=== PATIENT | female | born 1965 | race Caucasian/White ===

== ENCOUNTER 2024-10-15 16:11 | Emergency (ER) | payer OTHER ==
[2024-10-15 16:17] VITALS: RESP 18; TEMP 97.9
--- NOTE | 2024-10-15 17:40 | ED ---
Back Pain HPI - General Chief Complaint: Back Pain/Injury Stated Complaint: back injury -[facility] Time Seen by Provider: 10/15/24 16:30 Source: patient, RN notes reviewed Mode of arrival: ambulatory Limitations: no limitations - History of Present Illness Initial Comments: This is a 59-year-old female with no significant medical history presenting on behalf of [facility] for injury at work on Friday morning. 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 Patient denies loss of consciousness but endorses worsening back pain, neck stiffness/soreness and dizziness which started yesterday. Endorses use of Tylenol with minimal relief. Denies AMS, extremity paresthesia/radiculopathy, loss of extremity motor function, saddle paresthesia, urinary incontinence/retention. Denies chest pain, dyspnea, abdominal pain, N/V/D. MD Complaint: back pain, back injury Onset/Timin -: days(s) Place: work Severity scale (1-10): 10 Consistency: constant Improves With: immobilization Worsens With: movement Context: fall, trauma Treatments Prior to Arrival: acetaminophen - Related Data Home Medications Medication Instructions Recorded Confirmed Cholecalciferol [Vitamin D3] 5,000 unit PO DAILY@1200 04/11/14 04/13/14 Multivitamins, Thera [Multivitamin] 1 each PO DAILY 04/11/14 04/13/14 Phentermine HCl [Adipex-P] 37.5 mg PO QAM 04/11/14 04/13/14 Previous Rx's Medication Instructions Recorded Cyclobenzaprine [Flexeril] 10 mg PO Q8H PRN #15 tab 10/15/24 Ibuprofen [Motrin] 800 mg PO Q8HR PRN #30 tab 10/15/24 Allergies Allergy/AdvReac Type Severity Reaction Status Date / Time No Known Allergies Allergy Verified 10/15/24 16:17 Review of Systems ROS Statement: Those systems with pertinent positive or pertinent negative responses have been documented in the HPI. ROS Other: All systems not noted in ROS Statement are negative. Past Medical History Past Medical History: No Reported History History of Any Multi-Drug Resistant Organisms: None Reported Past Surgical History: Section, Cholecystectomy Additional Past Surgical History / Comment(s): cyst removed from tailbone Past Anesthesia/Blood Transfusion Reactions: Motion Sickness, Postoperative Nausea & Vomiting (PONV) Past Psychological History: No Psychological Hx Reported Past Alcohol Use History: Rare Past Drug Use History: None Reported - Past Family History Father Family Medical History: Diabetes Mellitus Mother Family Medical History: Diabetes Mellitus General Exam General appearance: alert, in no apparent distress Head exam: Present: atraumatic, normocephalic, normal inspection Eye exam: Present: normal appearance, PERRL, EOMI. Absent: scleral icterus, conjunctival injection, periorbital swelling ENT exam: Present: normal exam, mucous membranes moist Neck exam: Present: normal inspection. Absent: tenderness, meningismus, lymphadenopathy Respiratory exam: Present: normal lung sounds bilaterally. Absent: respiratory distress, wheezes, rales, rhonchi, stridor, accessory muscle use, decreased breath sounds, prolonged expiratory Cardiovascular Exam: Present: regular rate, normal rhythm, normal heart sounds. Absent: systolic murmur, diastolic murmur, rubs, gallop, clicks GI/Abdominal exam: Present: soft, normal bowel sounds. Absent: distended, tenderness, guarding, rebound, rigid Extremities exam: Present: normal inspection, full ROM, normal capillary refill. Absent: tenderness, pedal edema, joint swelling, calf tenderness Back exam: Present: vertebral tenderness (Positive diffuse vertebral tenderness without obvious crepitus or step-off.) Neurological exam: Present: alert, oriented X3, CN II-XII intact Psychiatric exam: Present: normal affect, normal mood Skin exam: Present: warm, dry, intact, normal color. Absent: rash Course Vital Signs 10/15/24 10/15/24 16:13 19:38 Temperature 97.9 F Pulse Rate 78 92 Respiratory 18 18 Rate Blood Pressure 160/91 153/90 O2 Sat by Pulse 99 99 Oximetry Medical Decision Making - Medical Decision Making Was pt. sent in by a medical professional or institution (RASHID Lorenz, CORRUGATED BOX MACHINE OPERATOR, urgent care, hospital, or fci...) When possible be specific @ -[facility] Did you speak to anyone other than the patient for history (EMS, parent, family, police, friend...)? What history was obtained from this source @ -No Did you review nursing and triage notes (agree or disagree)? Why? @ -I reviewed and agree with nursing and triage notes Were old charts reviewed (outside hosp., previous admission, EMS record, old EKG, old radiological studies, urgent care reports/EKG's, fci records)? Report findings @ -No old charts were reviewed Differential Diagnosis (chest pain, altered mental status, abdominal pain women, abdominal pain men, vaginal bleeding, weakness, fever, dyspnea, syncope, headache, dizziness, GI bleed, back pain, seizure, CVA, palpatations, mental health, musculoskeletal)? @ -Differential Musculoskeletal Muscular strain, contusion, ligament sprain, fracture, arthritis, septic arthritis, bursitis, cellulitis, muscle spasm, nerve compression, DVT, arterial occlusion, herpes zoster, electrolyte abnormality, tumor.... This is not meant to be in all inclusive list EKG interpreted by me (3pts min.). @ -Not done X-rays interpreted by me (1pt min.). @ -None done CT interpreted by me (1pt min.). @ - Head/cervical spine CT shows no acute intracranial process. Degenerative disc changes with endplate spurring and moderate anterior thecal sac compression at C5/C6 and C6/C7. For aminal stenosis from vertebral joint hypertrophy at C5/C6 with no acute fracture seen. Thoracic/lumbar CT shows multilevel endplate spurring throughout the thoracic spine and multilevel disc bulging with thecal sac compression of lumbar spine. Disc bulging and facet hypertrophy and ligamentum flavum laxity at L4/L5 causing spinal canal stenosis. Otherwise no acute fracture. U/S interpreted by me (1pt. min.). @ -None done What testing was considered but not performed or refused? (CT, X-rays, U/S, labs)? Why? @ -None What meds were considered but not given or refused? Why? @ -None Did you discuss the management of the patient with other professionals (professionals i.e. Dr., PA, CORRUGATED BOX MACHINE OPERATOR, lab, RT, psych nurse, sexual assault social worker, rubber heel and sole press tender, teacher, credit risk officer, geriatric case manager)? Give summary @ -No Was smoking cessation discussed for >3mins.? @ -No Was critical care preformed (if so, how long)? @ -No Were there social determinants of health that impacted care today? How? (Homelessness, low income, unemployed, alcoholism, drug addiction, transportation, low edu. Level, literacy, decrease access to med. care, detention, rehab)? @ -No Was there de-escalation of care discussed even if they declined (Discuss DNR or withdrawal of care, Hospice)? DNR status @ -No What co-morbidities impacted this encounter? (DM, HTN, Smoking, COPD, CAD, Cancer, CVA, ARF, Chemo, Hep., AIDS, mental health diagnosis, sleep apnea, morbid obesity)? @ -None Was patient admitted / discharged? Hospital course, mention meds given and route, prescriptions, significant lab abnormalities, going to OR and other pertinent info. @ -Patient initially provided IV morphine, Toradol, p.o. Tylenol and lidocaine patch for pain. Head/cervical spine CT shows no acute intracranial process. Degenerative disc changes with endplate spurring and moderate anterior thecal sac compression at C5/C6 and C6/C7. For aminal stenosis from vertebral joint hypertrophy at C5/C6 with no acute fracture seen. Thoracic/lumbar CT shows multilevel endplate spurring throughout the thoracic spine and multilevel disc bulging with thecal sac compression of lumbar spine. Disc bulging and facet hypertrophy and ligamentum flavum laxity at L4/L5 causing spinal canal stenosis. Otherwise no acute fracture. Motrin 800 and Flexeril sent to patient's pharmacy. Advised purchasing [id number] lidocaine patches for application for 12 hours every 24 hours. Advised follow-up with orthospine for any ongoing spine/back pain. Discussed patient with Dr. Quintero. Undiagnosed new problem with uncertain prognosis? @ -No Drug Therapy requiring intensive monitoring for toxicity (Heparin, Nitro, Insulin, Cardizem)? @ -No Were any procedures done? @ -No Diagnosis/symptom? @ -Disc bulging, DDD, thecal sac compression, mechanical back pain Acute, or Chronic, or Acute on Chronic? @ -Acute Uncomplicated (without systemic symptoms) or Complicated (systemic symptoms)? @ -Uncomplicated Side effects of treatment? @ -No Exacerbation, Progression, or Severe Exacerbation? @ -No Poses a threat to life or bodily function? How? (Chest pain, [place], [place], pneumonia, PE, COPD, DKA, ARF, appy, cholecystitis, CVA, Diverticulitis, Homicidal, Suicidal, threat to staff... and all critical care pts) @ -No Disposition Clinical Impression: Thoracic back pain, Bulging discs Disposition: HOME SELF-CARE Condition: Fair Instructions (If sedation given, give patient instructions): Acute Low Back Pain (ED), Thoracic Pain (ED) Additional Instructions: Warm compresses/heating pad to affected muscle spasms for 10 minutes up to 4 times daily. Gentle massage and stretching also recommended. Alternate Tylenol/Motrin every 4 hours for pain. Follow-up with PCP/orthopedics for any ongoing or worsening pain. Prescriptions: Cyclobenzaprine [Flexeril] 10 mg PO Q8H PRN #15 tab PRN Reason: Spasms Ibuprofen [Motrin] 800 mg PO Q8HR PRN #30 tab PRN Reason: Pain Is patient prescribed a controlled substance at d/c from ED?: No Referrals: None,Stated [Primary Care Provider] - 1-2 days [facility] [Provider Group] - 1-2 days [facility] [Provider Group] - 1-2 days Time of Disposition: 18:54
[2024-10-15] MEDS: KETOROLAC 15 MG/ML 1 ML VIAL IVP STA (17:47)
[2024-10-15] MEDS: MORPHINE SULFATE 4 MG/ML SYRINGE IVP STA (17:50)
[2024-10-15] MEDS: ACETAMINOPHEN TAB 500 MG TAB PO STA (17:54)
[2024-10-15] MEDS: LIDOCAINE 4% PATCH TOPICAL ONE (17:54)
--- NOTE | 2024-10-15 18:34 | CT ---
EXAMINATION TYPE: CT brain radhaine wo con DATE OF EXAM: 10/15/2024 6:20 PM COMPARISON: None. CLINICAL INDICATION: Female, 59 years old with history of Work incident, significant mid back pain/TT P,dizzy, fall, pain TECHNIQUE: CT of the brain is performed utilizing 3 mm thick sections through the posterior fossa and 3 mm thick sections through the remaining calvarium. Study is performed within 24 hours of arrival to the hospital. Contrast used: mL of , (none if empty) CT DLP: 1370.7 mGycm, Automated exposure control for dose reduction was used. FINDINGS: No abnormal hyperdensity is present to suggest an acute intracranial hemorrhage. No mass lesion is evident. Some minimal physiologic basal ganglion calcification is present No acute infarcts are evident. Ventricles and sulci are appropriate for the patient age. Paranasal sinuses and mastoid air cells within the [id number] are clear. IMPRESSIONS: 1. No acute intracranial process. Follow-up MRI can be performed as clinically indicated. CT cervical spine. COMPARISON: None TECHNIQUE: CT of the cervical spine is performed in the axial plane at 2 mm thick sections. Reconstr ucted images in the coronal, and sagittal plane are reviewed on the computer. FINDINGS: No acute fractures are evident. Vertebral body alignment is normal. C5-6 and C6-7 disc space narrowing is present. Some C4-5 disc space narrowing is also present. Vertebral body heights are preserved. Posterior endplate spurring is present C4-C6. Prevertebral space is normal. Intervertebral by present C4-C6. C5-6 C6-7 endplate spurring has moderate anterior thecal sac compression. No AP spinal canal stenosis. Foraminal stenosis present C5-6. IMPRESSION: 1. Degenerative disc change with endplate spurring has moderate anterior thecal sac compression C5-6 C6-7. 2. Foraminal stenosis from uncovertebral joint hypertrophy C5-6. 3. No acute osseous abnormality cervical spine [facility], , 10/15/2024 6:32 PM
--- NOTE | 2024-10-15 18:48 | CT ---
EXAMINATION TYPE: CT thor lumbar spine wo con DATE OF EXAM: 10/15/2024 6:21 PM COMPARISON: None. CLINICAL INDICATION: Female, 59 years old with history of Work incident, significant mid back pain/TT P,dizzy, fall TECHNIQUE: Contrast used: mL of , (none if empty) Oral contrast used: (none if empty) Axial images at 5 mm thick sections. Reconstructed images in the coronal and sagittal planes. 3 FINDINGS: Posterior to T2 is an endplate spur with moderate anterior thecal sac compression. No AP spinal canal stenosis is present. Some cord contact may be present. T3-4 and T4-5: Endplate changes are present at T3 and T4 with anterior thecal sac flattening. No AP s madelyn canal stenosis is present. T6-7: some endplate spurring is present T6-7. Mild to moderate anterior thecal sac compression is pre sent. L1-2: There is some endplate disc bulging. Central disc calcification is present. This has mild anter ior thecal sac compression. No AP spinal canal stenosis. L2-3: Mild disc bulges anterior thecal sac contact. No AP spinal canal stenosis or neural foraminal s tenosis L3-4 disc bulge is present and has calcification centrally. Facet hypertrophy and ligamentum flavum l axity are present without spinal canal stenosis. Neural foramen are patent. 3-4: Disc bulge with disc calcification is present with minimal anterior thecal sac compression. No AP spinal canal stenosis i s present L4-5: Broad-based disc bulge is moderate anterior thecal sac compression. Facet hypertrophy and ligam entum flavum laxity. Thecal sac compression. L5-S1: There is disc bulge is present. No spinal canal stenosis or neural foraminal stenosis. IMPRESSION: 1. NO ACUTE OSSEOUS ABNORMALITY RADIOGRAPHICALLY APPARENT. 2. THERE ARE MULTILEVEL ENDPLATE SPURS THROUGH THE THORACIC SPINE. 3. MULTILEVEL DISC BULGES WITH THECAL SAC COMPRESSION WITHIN THE LUMBAR SPINE. 4. DISC BULGING AND FACET HYPERTROPHY AND LIGAMENTUM FLAVUM LAXITY AT L4-5 CONTRIBUTING TO SPINAL CAN AL STENOSIS [facility], , 10/15/2024 6:46 PM
[2024-10-15 19:39] VITALS: BP 153/90; PULSE 92
== END 2024-10-15 19:45 | disposition home or self-care (01) ==
LOC: EC 16:11
DX: M51.34 Other intervertebral disc degeneration, thoracic region (principal); M48.061 Spinal stenosis, lumbar region without neurogenic claudication; M48.02 Spinal stenosis, cervical region; M51.369 Other intervertebral disc degeneration, lumbar region without mention of lumbar back pain or lower extremity pain
CPT/HCPCS: 72128; 72125; 72131; 70450; 99284; 96374; 96375; J2270; J1885

== ENCOUNTER → 2024-10-22 | Outpatient (CLI) | payer OTHER ==
--- NOTE | 2024-10-22 13:46 | XR ---
EXAMINATION TYPE: XR shoulder complete LT DATE OF EXAM: 10/22/2024 1:24 PM COMPARISON: None. CLINICAL INDICATION: Female, 59 years old with history of S40.022D Bruising left arm, Pain TECHNIQUE: XR shoulder complete LT 3 view(s) obtained. FINDINGS: The humeral head articulates with the glenoid. The acromio-clavicular junction is normal. No acute fractures or dislocations are evident. A follow up study can be performed 7-10 days from acute trauma for continued pain. MRI can be perfor med if soft tissue evaluation would be of benefit. IMPRESSION: 1. No acute osseous shoulder abnormality. [facility], , 10/22/2024 1:44 PM
--- NOTE | 2024-10-22 14:03 | XR ---
EXAMINATION TYPE: XR humerus LT DATE OF EXAM: 10/22/2024 1:23 PM COMPARISON: None. CLINICAL INDICATION: Female, 59 years old with history of S40.022D Bruising Left arm, pain TECHNIQUE: 2 view(s) obtained. FINDINGS: Joint spaces appear preserved. Numerous appears intact. No acute fracture or dislocation of the area IMPRESSION: 1. No acute osseous abnormality left humerus [facility], , 10/22/2024 2:01 PM
--- NOTE | 2024-10-23 10:59 | MR ---
EXAMINATION TYPE: MR tspine/lspine wo con DATE OF EXAM: 10/22/2024 1:09 PM COMPARISON: None. CLINICAL INDICATION: Female, 59 years old with history of S23.3XXD LGMNT SPRN TS S33.5XXD LGMNT SPRN LS, Pt fell off of a Semi-Trailer 11 days ago TECHNIQUE: Multiplanar, multiecho imaging on a 3.0 Nida magnet is performed through the thoracic spi ne. IV Contrast: mL (None, if empty) FINDINGS: Vertebral body heights are preserved. Disc heights are preserved. No signal abnormality within the ve rtebral bodies is identified. T6-7: Mild endplate spurring may be present in the T6-7 level. This has mild to moderate anterior the latesha sac compression. No cord contact or cord deformity is evident. No spinal canal stenosis. T3-4: Right paracentral disc bulge is present at the inferior T3-4 with moderate anterior thecal sac compression. Some cord deformity may be present. More superiorly, there is a moderate size disc herni ation with cord contact and cord deformity, example image series 901 image 15. No AP spinal canal sundar nosis. Along the superior endplate of T4 there is increased signal on T2-weighted sequences. This is hypoint ense on T1-weighted sequences. Contusion with minimal anterior superior vertebral body height loss ma y be present. Correlate with location of the patient's pain. No posterior wall displacement is eviden t. T1-2: There is broad-based disc bulge with moderate anterior thecal sac compression. This comes in cl ose approximation of the spinal cord. Mild AP spinal canal stenosis is present. Neural foramen are pa tent. Spinal cord maintains normal signal through its visualized thoracic canal course. Vertebral body alignment is normal. Remaining vertebral body heights are preserved IMPRESSION: 1. Large central disc herniation with paracentral disc extension at T3-4 is moderate anterior thecal sac compression cord contact or high. 2. Signal change with minimal superior endplate change at T4 may be a contusion. 3. T1-T2 broad-based disc bulge with moderate anterior thecal sac compression. Some mild AP spinal ca nal stenosis present at this level. EXAMINATION TYPE: MR zabrina/basilia wo con DATE OF EXAM: 10/22/2024 1:09 PM COMPARISON: None. CLINICAL INDICATION: Female, 59 years old with history of S23.3XXD LGMNT SPRN TS S33.5XXD LGMNT SPRN LS, Pt fell off of a Semi-Trailer 11 days ago TECHNIQUE: Multiplanar, multisequence images of the lumbar spine were acquired. IV Contrast: mL (None, if empty) FINDINGS: Cord ends at the L1-L2 level. L5-S1: No focal disc herniation or significant disc bulge. No spinal canal stenosis. Some mild left foraminal stenosis may be present. Disc desiccation is present. L4-L5: No focal disc herniation or significant disc bulge. No spinal canal stenosis. Neural foramen are patent. Facet hypertrophy is present with mild ligamentum flavum laxity. Posterior thecal sac c ompression is present. No AP spinal canal stenosis evident. Some mild disc desiccation is present. L3-L4: No focal disc herniation or significant disc bulge. No spinal canal stenosis. Neural foramen are patent. L2-L3: No focal disc herniation or significant disc bulge. No spinal canal stenosis. Neural foramen are patent. L1-L2: No focal disc herniation or significant disc bulge. No spinal canal stenosis. Neural foramen are patent. T12-L1: No focal disc herniation or significant disc bulge. No spinal canal stenosis. Neural forame n are patent. IMPRESSION: 1. Facet hypertrophy with minimal posterior lateral thecal sac compression L5-S1 and L4-5. 2. Mild left foraminal stenosis L5-S1. 3. No acute osseous abnormality lumbar spine [facility], , 10/23/2024 10:57 AM
== END | disposition home or self-care (01) ==
LOC: RADMRIMAIN 11:28
PROVIDERS: ATTEND Emergency Medicine
DX: S23.3XXD Sprain of ligaments of thoracic spine, subsequent encounter (principal); S33.5XXD Sprain of ligaments of lumbar spine, subsequent encounter; S13.4XXD Sprain of ligaments of cervical spine, subsequent encounter
CPT/HCPCS: 72146; 72148